=== PATIENT | female | born 1980 | race Two or more races ===

== ENCOUNTER → 2016-10-23 | Outpatient (CLI) | payer BC ==
[2016-10-23 12:55] LABS: Basophils # (auto) 0 uL; Basophils % (auto) 0.2 % (0.0-2.0); CONDITION Y; DEFINITIVE SEE PRINTOUT; Eosinophils # (auto) 0.1 uL; Eosinophils % (auto) 1.1 % (0.0-7.0); Hematocrit 38.9 % (36.0-46.0); Hemoglobin 12.4 g/dL (12.2-16.2); Lymphocytes # (auto) 2.7 uL; Lymphocytes % (auto) 33.2 % (10.0-50.0); Mean Corpuscular Hemoglobin 24.7 pg (28.0-32.0); Mean Corpuscular Hgb Conc. 31.9 g/dL (32.0-36.0); Mean Corpuscular Volume 77.4 fL (80.0-100.0); Mean Platelet Volume 9.4 fL (7.4-10.4); Monocytes # (auto) 0.5 uL; Monocytes % (auto) 6.3 % (0.0-12.0); Neutrophils # (auto) 4.7 uL; Neutrophils % (auto) 59.2 % (37.0-80.0); Platelet Count (auto) 393 10^3/uL (140-450); Red Cell Distribution Width 17.8 % (11.6-16.0)
[2016-10-23 13:19] LABS: Albumin 3.4 g/dL (3.4-5.0); BUN/Creatinine Ratio 10.7; Bilirubin, Total 0.6 mg/dL (0.2-1.0); Calcium 8.5 mg/dL (8.5-10.1); Potassium 4.1 mmol/L (3.5-5.1); Total Protein 7.4 g/dL (6.4-8.2)
[2016-10-23 14:16] LABS: Urine Bilirubin Negative (Negative); Urine Blood Negative /uL (Negative); Urine Color Yellow (Yellow); Urine Glucose Normal (Normal); Urine Ketone Negative (Negative); Urine Mucus FEW (None Seen); Urine Nitrite Negative (Negative); Urine RBC 2 /hpf (0 - 4); Urine Squamous Epithelial Cell MOD /hpf (<5); Urine Urobilinogen Normal (Negative)
== END | disposition home or self-care (01) ==
LOC: LAB 12:31
PROVIDERS: ATTEND Internal Medicine
DX: N83.209 Unspecified ovarian cyst, unspecified side (principal); E66.9 Obesity, unspecified; Z98.84 Bariatric surgery status
CPT/HCPCS: 36415; 80053; 80061; 81001; 82607; 84439; 84443; 85025; 85652

== ENCOUNTER → 2016-11-20 | Outpatient (CLI) | payer BC ==
[2016-11-20 10:48] LABS: Basophils # (auto) 0 uL; Basophils % (auto) 0.3 % (0.0-2.0); Eosinophils # (auto) 0.1 uL; Lymphocytes # (auto) 2.4 uL; Red Cell Distribution Width 17.5 % (11.8-14.3)
[2016-11-20 10:50] LABS: Eosinophils % (auto) 0.9 % (0.0-7.0); Hematocrit 37.7 % (36.0-46.0); Hemoglobin 12.1 g/dL (12.2-16.2); Lymphocytes % (auto) 26.8 % (10.0-50.0); Mean Corpuscular Hemoglobin 24.6 pg (28.0-32.0); Mean Corpuscular Hgb Conc. 32.1 g/dL (32.0-36.0); Mean Corpuscular Volume 76.7 fL (80.0-100.0); Mean Platelet Volume 8.2 fL (6.9-10.8); Monocytes # (auto) 0.6 uL; Monocytes % (auto) 6.5 % (0.0-12.0); Neutrophils % (auto) 65.5 % (37.0-80.0); Platelet Count (auto) 399 10^3/uL (140-450); White Blood Cell 9.1 10^3/uL (4.4-10.8)
[2016-11-20 12:03] LABS: B-Type Natriuretic Peptide 13.5 pg/mL (0-100); Temperature: 22.9 C (20.0-25.0)
== END | disposition home or self-care (01) ==
LOC: LAB 10:24
PROVIDERS: ATTEND Internal Medicine
DX: E66.9 Obesity, unspecified (principal); R06.09 Other forms of dyspnea
CPT/HCPCS: 36415; 83880; 85025; 85379

== ENCOUNTER → 2016-12-15 | Outpatient (CLI) | payer BC | END | disposition home or self-care (01) | LOC: XYW 09:03 | PROVIDERS: ATTEND Internal Medicine | DX: I08.0 Rheumatic disorders of both mitral and aortic valves (principal) | CPT/HCPCS: 93306 ==

== ENCOUNTER → 2017-02-01 | Outpatient (CLI) | payer BC ==
[~2017-02-01] MED LIST: ALBUTEROL SULF 2.5 MG/0.5ML(0.5%) NEB SOLN ONE
== END | disposition home or self-care (01) ==
LOC: RT 08:58
PROVIDERS: ATTEND Internal Medicine
DX: R06.02 Shortness of breath (principal)
CPT/HCPCS: 94060

== ENCOUNTER 2017-10-11 18:53 | Emergency (ER) | payer BC ==
[~2017-10-11] VITALS: Ht 170.2 cm; Wt 136.1 kg
[~2017-10-11 18:53] MED LIST changes: +ALBUAER3 IN; -ALBUTEROL SULF 2.5 MG/0.5ML(0.5%) NEB SOLN ONE; +MONT10TA23 PO
[2017-10-11 19:53] LABS: Urine Bacteria NONE SEEN /hpf (None Seen); Urine Blood Negative /uL (Negative); Urine Mucus FEW (None Seen); Urine Specific Gravity 1.014 (1.001-1.035); Urine WBC 2 /hpf (0 - 5)
[2017-10-11 21:42] VITALS: BP 140/80
== END 2017-10-11 21:57 | disposition home or self-care (01) ==
LOC: ER 18:59
DX: M46.96 Unspecified inflammatory spondylopathy, lumbar region (principal); N39.0 Urinary tract infection, site not specified; Z90.49 Acquired absence of other specified parts of digestive tract
CPT/HCPCS: 72131; 74176; 81001; 81025

== ENCOUNTER → 2017-10-22 | Outpatient (CLI) | payer BC ==
[2017-10-22 10:16] LABS: Basophils # (auto) 0 uL; Eosinophils # (auto) 0 uL; Eosinophils % (auto) 0.8 % (0.0-7.0); Lymphocytes # (auto) 1.5 uL; Monocytes # (auto) 0.3 uL
[2017-10-22 10:17] LABS: Basophils % (auto) 0.4 % (0.0-2.0); Hematocrit 37.3 % (36.0-46.0); Lymphocytes % (auto) 28.6 % (10.0-50.0); Mean Corpuscular Hemoglobin 24.2 pg (28.0-32.0); Mean Corpuscular Hgb Conc. 32.1 g/dL (32.0-36.0); Mean Corpuscular Volume 75.5 fL (80.0-100.0); Monocytes % (auto) 6.3 % (0.0-12.0); Neutrophils # (auto) 3.3 uL; Neutrophils % (auto) 63.9 % (37.0-80.0); Platelet Count (auto) 331 10^3/uL (140-450); Red Blood Cells 4.95 10^6/uL (4.0-5.20); White Blood Cell 5.1 10^3/uL (4.4-10.8)
[2017-10-22 10:20] LABS: Urine Bacteria NONE SEEN /hpf (None Seen); Urine Blood Negative /uL (Negative); Urine Mucus FEW (None Seen); Urine Specific Gravity 1.018 (1.001-1.035); Urine WBC 2 /hpf (0 - 5)
[2017-10-22 11:40] LABS: Albumin 3.2 g/dL (3.4-5.0); BUN/Creatinine Ratio 9.9; Bilirubin, Total 0.5 mg/dL (0.2-1.0); Calcium 8.1 mg/dL (8.5-10.1); Potassium 3.8 mmol/L (3.5-5.1); Total Protein 6.9 g/dL (6.4-8.2)
[2017-10-22 11:58] LABS: Free T4 (Free Thyroxine) 0.99 ng/dL (0.89-1.76)
== END | disposition home or self-care (01) ==
LOC: LAB 09:43
PROVIDERS: ATTEND Internal Medicine
DX: M79.2 Neuralgia and neuritis, unspecified (principal)
CPT/HCPCS: 36415; 80053; 80061; 81001; 82607; 84207; 84425; 84439; 84443; 85025; 85652

== ENCOUNTER → 2018-02-28 | Outpatient (CLI) | payer BC ==
[2018-02-28 07:33] LABS: Basophils # (auto) 0 uL; Basophils % (auto) 0.4 % (0.0-2.0); Eosinophils # (auto) 0.1 uL; Eosinophils % (auto) 1.2 % (0.0-7.0); Hematocrit 45.8 % (36.0-46.0); Hemoglobin 14.9 g/dL (12.2-16.2); Lymphocytes # (auto) 1.7 uL; Lymphocytes % (auto) 28.3 % (10.0-50.0); Mean Corpuscular Hemoglobin 27.4 pg (28.0-32.0); Mean Corpuscular Hgb Conc. 32.5 g/dL (32.0-36.0); Mean Corpuscular Volume 84.3 fL (80.0-100.0); Monocytes # (auto) 0.3 uL; Monocytes % (auto) 5.6 % (0.0-12.0); Neutrophils % (auto) 64.5 % (37.0-80.0); Platelet Count (auto) 283 10^3/uL (140-450); Red Blood Cells 5.43 10^6/uL (4.0-5.20); Red Cell Distribution Width 19.1 % (11.8-14.3); White Blood Cell 6.2 10^3/uL (4.4-10.8)
[2018-02-28 10:37] LABS: Hepatitis B Surface Antibody Negative
[2018-02-28 12:46] LABS: Hepatitis B Surface Antigen Negative (Negative)
[2018-02-28 12:47] LABS: Hepatitis B Core IgM Negative
[2018-03-01 23:26] LABS: RPR Non Reactive (Non Reactive)
== END | disposition home or self-care (01) ==
LOC: LAB 07:06
PROVIDERS: ATTEND Internal Medicine
DX: D64.9 Anemia, unspecified (principal); Z77.21 Contact with and (suspected) exposure to potentially hazardous body fluids
CPT/HCPCS: 36415; 82607; 83540; 84425; 85025; 86592; 86703; 86705; 86706; 86803; 87340

== ENCOUNTER → 2018-09-26 | Outpatient (CLI) | payer BC | END | disposition home or self-care (01) | LOC: LAB 14:31 | PROVIDERS: ATTEND Specialist | DX: N83.299 Other ovarian cyst, unspecified side (principal) | CPT/HCPCS: 82378; 86301; 86304 ==

== ENCOUNTER → 2018-12-02 | Outpatient (CLI) | payer BC ==
[2018-12-02 09:44] LABS: Basophils # (auto) 0 uL; Basophils % (auto) 0.3 % (0.0-2.0); Eosinophils # (auto) 0.1 uL; Eosinophils % (auto) 1.6 % (0.0-7.0); Hematocrit 47.4 % (36.0-46.0); Hemoglobin 15.8 g/dL (12.2-16.2); Lymphocytes # (auto) 1.1 uL; Lymphocytes % (auto) 20.9 % (10.0-50.0); Mean Corpuscular Hemoglobin 30.6 pg (28.0-32.0); Mean Corpuscular Hgb Conc. 33.3 g/dL (32.0-36.0); Monocytes # (auto) 0.4 uL; Monocytes % (auto) 7.5 % (0.0-12.0); Neutrophils # (auto) 3.7 uL; Neutrophils % (auto) 69.7 % (37.0-80.0); Nucleated Red Blood Cells % 0.2 %; Platelet Count (auto) 208 10^3/uL (140-450); Red Blood Cells 5.15 10^6/uL (4.0-5.20); Red Cell Distribution Width 13.4 % (11.8-14.3); White Blood Cell 5.3 10^3/uL (4.4-10.8)
[2018-12-02 09:56] LABS: Urine Bacteria NONE SEEN /hpf (None Seen); Urine Blood Negative /uL (Negative); Urine Specific Gravity 1.016 (1.001-1.035); Urine WBC 1 /hpf (0 - 5)
[2018-12-02 09:58] LABS: Albumin 3.2 g/dL (3.4-5.0); Calcium 8.3 mg/dL (8.5-10.1); Potassium 4.4 mmol/L (3.5-5.1)
[2018-12-02 10:02] LABS: BUN/Creatinine Ratio 10.5; Bilirubin, Total 0.8 mg/dL (0.2-1.0); Total Protein 6.7 g/dL (6.4-8.2)
== END | disposition home or self-care (01) ==
LOC: LAB 09:19
PROVIDERS: ATTEND Internal Medicine
DX: Z00.00 Encounter for general adult medical examination without abnormal findings (principal); J02.9 Acute pharyngitis, unspecified; R53.83 Other fatigue
CPT/HCPCS: 36415; 80053; 80061; 81001; 84439; 84443; 85025; 85652; 86308

== ENCOUNTER → 2019-10-18 | Outpatient (CLI) | payer BC | END | disposition home or self-care (01) | LOC: US 09:21 | PROVIDERS: ATTEND Internal Medicine | DX: R92.2 Inconclusive mammogram (principal); N63.11 Unspecified lump in the right breast, upper outer quadrant; N60.31 Fibrosclerosis of right breast; Z90.49 Acquired absence of other specified parts of digestive tract; Z68.41 Body mass index [BMI] 40.0-44.9, adult; Z98.84 Bariatric surgery status; Z98.890 Other specified postprocedural states; Z79.899 Other long term (current) drug therapy | CPT/HCPCS: 19083; 88305; 88342; J2001; 10022; 76942 ==

== ENCOUNTER → 2019-11-17 | Outpatient (CLI) | payer BC ==
[2019-11-17 11:02] LABS: Basophils # (auto) 0 10 ^3/uL (0-0.2); Basophils % (auto) 0.3 % (0.0-2.0); Eosinophils # (auto) 0.1 10 ^3/uL (0-0.8); Eosinophils % (auto) 0.9 % (0.0-7.0); Hematocrit 42.5 % (36.0-46.0); Hemoglobin 13.9 g/dL (12.2-16.2); Lymphocytes # (auto) 1.8 10 ^3/uL (0.4-5.4); Lymphocytes % (auto) 23.9 % (10.0-50.0); Mean Corpuscular Hgb Conc. 32.7 g/dL (32.0-36.0); Mean Corpuscular Volume 85.6 fL (80.0-100.0); Monocytes # (auto) 0.4 10 ^3/uL (0-1.3); Monocytes % (auto) 5.7 % (0.0-12.0); Neutrophils # (auto) 5.3 10 ^3/uL (1.6-8.6); Neutrophils % (auto) 69.2 % (37.0-80.0); Platelet Count (auto) 309 10^3/uL (140-450); Red Blood Cells 4.97 10^6/uL (4.0-5.20); Red Cell Distribution Width 14.4 % (11.8-14.3); White Blood Cell 7.7 10^3/uL (4.4-10.8)
[2019-11-17 11:31] LABS: Calcium 8.4 mg/dL (8.5-10.1); Potassium 4.1 mmol/L (3.5-5.1)
[2019-11-17 11:39] LABS: Albumin 3.3 g/dL (3.4-5.0); BUN/Creatinine Ratio 18.5; Bilirubin, Total 0.8 mg/dL (0.2-1.0); Total Protein 6.4 g/dL (6.4-8.2)
== END | disposition home or self-care (01) ==
LOC: LAB 10:39
PROVIDERS: ATTEND Internal Medicine
DX: G93.3 Postviral and related fatigue syndromes (principal); R05 Cough
CPT/HCPCS: 36415; 80053; 83615; 85025; 85652

== ENCOUNTER → 2019-11-24 | Outpatient (CLI) | payer BC ==
[2019-11-24 15:12] LABS: Basophils # (auto) 0 10 ^3/uL (0-0.2); Basophils % (auto) 0.3 % (0.0-2.0); Eosinophils # (auto) 0.1 10 ^3/uL (0-0.8); Hematocrit 43.1 % (36.0-46.0); Hemoglobin 14.2 g/dL (12.2-16.2); Lymphocytes # (auto) 2.3 10 ^3/uL (0.4-5.4); Lymphocytes % (auto) 30.3 % (10.0-50.0); Mean Corpuscular Hemoglobin 28.3 pg (28.0-32.0); Mean Corpuscular Hgb Conc. 32.9 g/dL (32.0-36.0); Monocytes # (auto) 0.5 10 ^3/uL (0-1.3); Neutrophils # (auto) 4.7 10 ^3/uL (1.6-8.6); Neutrophils % (auto) 61.4 % (37.0-80.0); Nucleated Red Blood Cells % 0.2 %; Platelet Count (auto) 301 10^3/uL (140-450); Red Blood Cells 5.01 10^6/uL (4.0-5.20); Red Cell Distribution Width 15.1 % (11.8-14.3); White Blood Cell 7.6 10^3/uL (4.4-10.8)
[2019-11-24 15:52] LABS: Urine Bacteria NONE SEEN /hpf (None Seen); Urine Blood Negative /uL (Negative); Urine Mucus FEW (None Seen); Urine Specific Gravity 1.023 (1.001-1.035); Urine WBC 13 /hpf (0 - 5)
[2019-11-24 15:57] LABS: Albumin 3.5 g/dL (3.4-5.0); BUN/Creatinine Ratio 18.6; Bilirubin, Total 0.8 mg/dL (0.2-1.0); Calcium 8.7 mg/dL (8.5-10.1); Total Protein 7.1 g/dL (6.4-8.2)
== END | disposition home or self-care (01) ==
LOC: LAB 14:53
PROVIDERS: ATTEND Internal Medicine
DX: J45.909 Unspecified asthma, uncomplicated (principal); N83.209 Unspecified ovarian cyst, unspecified side
CPT/HCPCS: 36415; 80053; 80061; 81001; 82785; 84439; 84443; 85025; 85652; 86304

== ENCOUNTER → 2020-02-13 | Outpatient (CLI) | payer BC | END | disposition home or self-care (01) | LOC: LAB 11:51 | PROVIDERS: ATTEND Specialist | DX: D27.9 Benign neoplasm of unspecified ovary (principal) | CPT/HCPCS: 36415; 82565; 84520 ==

== ENCOUNTER → 2020-02-23 | Outpatient (CLI) | payer BC ==
[2020-02-23 15:29] LABS: Basophils # (auto) 0 10 ^3/uL (0-0.2); Basophils % (auto) 0.4 % (0.0-2.0); Eosinophils # (auto) 0.1 10 ^3/uL (0-0.8); Eosinophils % (auto) 0.9 % (0.0-7.0); Hematocrit 40.3 % (36.0-46.0); Hemoglobin 13.4 g/dL (12.2-16.2); Lymphocytes # (auto) 1.4 10 ^3/uL (0.4-5.4); Lymphocytes % (auto) 24.1 % (10.0-50.0); Mean Corpuscular Hgb Conc. 33.3 g/dL (32.0-36.0); Monocytes # (auto) 0.4 10 ^3/uL (0-1.3); Monocytes % (auto) 7.3 % (0.0-12.0); Neutrophils # (auto) 3.9 10 ^3/uL (1.6-8.6); Neutrophils % (auto) 67.3 % (37.0-80.0); Nucleated Red Blood Cells % 0.1 %; Platelet Count (auto) 279 10^3/uL (140-450); Red Cell Distribution Width 14.1 % (11.8-14.3); White Blood Cell 5.8 10^3/uL (4.4-10.8)
[2020-02-23 16:13] LABS: Albumin 3.3 g/dL (3.4-5.0); Calcium 8.5 mg/dL (8.5-10.1); Potassium 3.8 mmol/L (3.5-5.1)
[2020-02-23 16:17] LABS: BUN/Creatinine Ratio 16.4; Bilirubin, Total 0.6 mg/dL (0.2-1.0)
== END | disposition home or self-care (01) ==
LOC: LAB 15:04
PROVIDERS: ATTEND Internal Medicine
DX: M25.50 Pain in unspecified joint (principal)
CPT/HCPCS: 36415; 80053; 85025; 85652; 86160; 86431; 86812

== ENCOUNTER → 2021-02-25 | Outpatient (CLI) | payer BC ==
[2021-02-25 07:25] LABS: Basophils # (auto) 0.1 10 ^3/uL (0-0.2); Basophils % (auto) 0.9 % (0.0-2.0); Eosinophils # (auto) 0.1 10 ^3/uL (0-0.8); Eosinophils % (auto) 1.3 % (0.0-7.0); Hematocrit 34.4 % (36.0-46.0); Hemoglobin 11.1 g/dL (12.2-16.2); Lymphocytes # (auto) 1.6 10 ^3/uL (0.4-5.4); Lymphocytes % (auto) 22.3 % (10.0-50.0); Mean Corpuscular Hemoglobin 23.8 pg (28.0-32.0); Mean Corpuscular Hgb Conc. 32.1 g/dL (32.0-36.0); Mean Corpuscular Volume 73.9 fL (80.0-100.0); Monocytes # (auto) 0.5 10 ^3/uL (0-1.3); Monocytes % (auto) 6.2 % (0.0-12.0); Neutrophils # (auto) 5.1 10 ^3/uL (1.6-8.6); Neutrophils % (auto) 69.3 % (37.0-80.0); Nucleated Red Blood Cells % 0.1 %; Red Blood Cells 4.65 10^6/uL (4.0-5.20); Red Cell Distribution Width 17.4 % (11.8-14.3); White Blood Cell 7.3 10^3/uL (4.4-10.8)
[2021-02-25 08:05] LABS: Urine Bacteria NONE SEEN /hpf (None Seen); Urine Blood Negative /uL (Negative); Urine Specific Gravity 1.022 (1.001-1.035); Urine WBC 26 /hpf (0 - 5)
[2021-02-25 08:27] LABS: Potassium 4.5 mmol/L (3.5-5.1)
[2021-02-25 08:35] LABS: Free T4 (Free Thyroxine) 1.03 ng/dL (0.89-1.76)
[2021-02-25 08:40] LABS: BUN/Creatinine Ratio 17.2; Bilirubin, Total 0.5 mg/dL (0.2-1.0); Calcium 7.9 mg/dL (8.5-10.1); Total Protein 6.3 g/dL (6.4-8.2)
== END | disposition home or self-care (01) ==
LOC: LAB 07:01
PROVIDERS: ATTEND Internal Medicine
DX: D36.9 Benign neoplasm, unspecified site (principal); T78.40XA Allergy, unspecified, initial encounter; Z98.84 Bariatric surgery status
CPT/HCPCS: 36415; 80053; 80061; 81001; 82607; 84439; 84443; 85025; 85652; 86304

== ENCOUNTER → 2022-12-24 | Outpatient (CLI) | payer BC ==
[2022-12-24 10:24] LABS: Basophils # (auto) 0 10 ^3/uL (0-0.2); Basophils % (auto) 0.3 % (0.0-2.0); Eosinophils # (auto) 0.1 10 ^3/uL (0-0.8); Eosinophils % (auto) 1.4 % (0.0-7.0); Hematocrit 44.4 % (36.0-46.0); Hemoglobin 14.7 g/dL (12.2-16.2); Lymphocytes # (auto) 1.8 10 ^3/uL (0.4-5.4); Lymphocytes % (auto) 27.1 % (10.0-50.0); Mean Corpuscular Hemoglobin 30.2 pg (28.0-32.0); Mean Corpuscular Hgb Conc. 33.2 g/dL (32.0-36.0); Mean Corpuscular Volume 90.9 fL (80.0-100.0); Monocytes # (auto) 0.4 10 ^3/uL (0-1.3); Monocytes % (auto) 6.4 % (0.0-12.0); Neutrophils # (auto) 4.4 10 ^3/uL (1.6-8.6); Neutrophils % (auto) 64.8 % (37.0-80.0); Nucleated Red Blood Cells % 0.1 %; Red Blood Cells 4.88 10^6/uL (4.0-5.20); Red Cell Distribution Width 12.9 % (11.8-14.3); White Blood Cell 6.8 10^3/uL (4.4-10.8)
[2022-12-24 11:05] LABS: Alanine Aminotransferase 13 U/L (7-40); Albumin 4.1 g/dL (3.2-4.8); Alkaline Phosphatase 88 U/L (46-116); Anion Gap 5 (5-15); Aspartate Aminotransferase 21 U/L (13-40); Bilirubin, Total 0.9 mg/dL (0.2-1.0); Blood Urea Nitrogen 7 mg/dL (9-23); Calcium 8.5 mg/dL (8.5-10.1); Carbon Dioxide 26 mmol/L (20-30); Chloride 109 mmol/L (98-107); Cholesterol 142 mg/dL (< 200); Glucose 83 mg/dL (74-106); HDL Cholesterol 56 mg/dL (40-59); LDL Cholesterol 76 mg/dL (< 100); Potassium 4.4 mmol/L (3.5-5.1); Sodium 140 mmol/L (136-145); Total Protein 6.5 g/dL (5.7-8.2); Triglycerides 87 mg/dL (< 150)
[2022-12-24 11:10] LABS: Urine Bacteria NONE SEEN /hpf (None Seen); Urine Blood Negative /uL (Negative); Urine Clarity HAZY (Clear); Urine Color Yellow (Yellow); Urine Protein, UAD Negative (Negative); Urine Specific Gravity 1.013 (1.001-1.035); Urine Urobilinogen Normal (Negative); Urine WBC 3 /hpf (0 - 5)
[2022-12-24 11:35] LABS: Follicle Stimulating Hormone 7.02 IU/L (SEE BELOW)
[2022-12-24 11:36] LABS: Prolactin 6.37 ng/mL (2.8-29.2)
[2022-12-24 11:57] LABS: Erythrocyte Sedimentation Rate 8 mm/hr (0-20)
[2022-12-24 12:06] LABS: Free T4 (Free Thyroxine) 1.11 ng/dL (0.89-1.76)
== END | disposition home or self-care (01) ==
LOC: LAB 10:06
PROVIDERS: ATTEND Internal Medicine
DX: D27.0 Benign neoplasm of right ovary (principal); R51.9 Headache, unspecified; Z68.43 Body mass index [BMI] 50.0-59.9, adult
CPT/HCPCS: 36415; 80053; 80061; 81001; 82607; 83001; 83036; 84146; 84403; 84439; 84443; 85025; 85652; 86304

== ENCOUNTER → 2023-07-23 | Outpatient (CLI) | payer BC | END | disposition home or self-care (01) | LOC: LAB 13:50 | PROVIDERS: ATTEND Family Medicine | DX: L82.1 Other seborrheic keratosis (principal); D48.5 Neoplasm of uncertain behavior of skin ==

== ENCOUNTER → 2024-03-03 | Outpatient (CLI) | payer BC ==
[2024-03-03 11:45] LABS: Basophils # (auto) 0 10 ^3/uL (0-0.2); Basophils % (auto) 0.3 % (0.0-2.0); Eosinophils # (auto) 0.3 10 ^3/uL (0-0.8); Eosinophils % (auto) 4.1 % (0.0-7.0); Hematocrit 43.1 % (36.0-46.0); Hemoglobin 14.7 g/dL (12.2-16.2); Lymphocytes # (auto) 2.3 10 ^3/uL (0.4-5.4); Lymphocytes % (auto) 28.1 % (10.0-50.0); Mean Corpuscular Hemoglobin 30.2 pg (28.0-32.0); Mean Corpuscular Volume 88.7 fL (80.0-100.0); Monocytes # (auto) 0.6 10 ^3/uL (0-1.3); Monocytes % (auto) 6.9 % (0.0-12.0); Neutrophils # (auto) 4.9 10 ^3/uL (1.6-8.6); Neutrophils % (auto) 60.6 % (37.0-80.0); Nucleated Red Blood Cells % 0.1 %; Platelet Count (auto) 277 10^3/uL (140-450); Red Blood Cells 4.86 10^6/uL (4.0-5.20); Red Cell Distribution Width 13.3 % (11.8-14.3); White Blood Cell 8.1 10^3/uL (4.4-10.8)
[2024-03-03 12:11] LABS: Alanine Aminotransferase < 9 U/L (7-40); Alkaline Phosphatase 101 U/L (46-116); Anion Gap 5 (5-15); Aspartate Aminotransferase 14 U/L (13-40); BUN/Creatinine Ratio 15.3 (10.0-20.0); Bilirubin, Total 0.7 mg/dL (0.2-1.0); Blood Urea Nitrogen 11 mg/dL (9-23); CRP High Sensitivity 0.67 mg/dL (<1.0); Calcium 9.2 mg/dL (8.7-10.4); Carbon Dioxide 27 mmol/L (20-31); Chloride 108 mmol/L (98-107); Glucose 85 mg/dL (74-106); Sodium 140 mmol/L (136-145); Total Protein 6.2 g/dL (5.7-8.2)
[2024-03-03 12:20] LABS: Erythrocyte Sedimentation Rate 7 mm/hr (0-20)
== END | disposition home or self-care (01) ==
LOC: LAB 11:10
PROVIDERS: ATTEND Internal Medicine
DX: K52.9 Noninfective gastroenteritis and colitis, unspecified (principal)
CPT/HCPCS: 36415; 80053; 85025; 85652; 86141

== ENCOUNTER → 2024-07-15 | Day surgery (SDC) | payer BC ==
[2024-07-07 11:38] LABS: Basophils # (auto) 0 10 ^3/uL (0-0.2); Basophils % (auto) 0.3 % (0.0-2.0); Eosinophils # (auto) 0.1 10 ^3/uL (0-0.8); Eosinophils % (auto) 1.3 % (0.0-7.0); Hematocrit 44.8 % (36.0-46.0); Hemoglobin 14.8 g/dL (12.2-16.2); Lymphocytes # (auto) 2.2 10 ^3/uL (0.4-5.4); Lymphocytes % (auto) 29.4 % (10.0-50.0); Mean Corpuscular Volume 84.9 fL (80.0-100.0); Monocytes # (auto) 0.4 10 ^3/uL (0-1.3); Monocytes % (auto) 5.6 % (0.0-12.0); Neutrophils # (auto) 4.9 10 ^3/uL (1.6-8.6); Neutrophils % (auto) 63.4 % (37.0-80.0); Nucleated Red Blood Cells % 0.1 %; Platelet Count (auto) 310 10^3/uL (140-450); Red Blood Cells 5.27 10^6/uL (4.0-5.20); White Blood Cell 7.7 10^3/uL (4.4-10.8)
[2024-07-07 11:55] LABS: INR 0.95 (0.9-1.15); Partial Thromboplastin Time 26.8 SEC (24.5-34.5); Prothrombin Time 10.1 sec (9.3-11.8)
[2024-07-07 11:57] LABS: Alanine Aminotransferase 12 U/L (7-40); Albumin 4.2 g/dL (3.2-4.8); Alkaline Phosphatase 104 U/L (46-116); Anion Gap 8 (5-15); Aspartate Aminotransferase 16 U/L (13-40); BUN/Creatinine Ratio 12.5 (10.0-20.0); Blood Urea Nitrogen 9 mg/dL (9-23); Calcium 8.8 mg/dL (8.7-10.4); Carbon Dioxide 26 mmol/L (20-31); Chloride 106 mmol/L (98-107); Glucose 86 mg/dL (74-106); Potassium 4.2 mmol/L (3.5-5.1); Sodium 140 mmol/L (136-145); Total Protein 6.9 g/dL (5.7-8.2)
[2024-07-07 11:58] LABS: Bilirubin, Total 0.7 mg/dL (0.2-1.0)
[~2024-07-15] VITALS: Ht 170.2 cm; Wt 166.9 kg
[~2024-07-15] MED LIST changes: +ASPI81CH59 PO; +[UNRECOGNIZED DRUG - CODE] PO; +diphenhdrAMINE HCL 50 MG/1 ML VL ONE
[2024-07-15] MEDS: fentaNYL CITRATE 100 MCG/2 ML VL ONE (08:32)
[2024-07-15] MEDS: MIDAZOLAM HCL 2MG/2ML 2ml VIAL (1mg/ml) ONE (08:32)
[2024-07-15 08:56] VITALS: PULSE 89; RESP 19; TEMP 97.9; O2SAT 99
--- NOTE | 2024-07-15 08:58 | DVHNC2 ---
Procedure - PROCEDURE DATE: 07/15/2024 PROCEDURE PERFORMED BY: ADELINA SOLANO MD REFERRING PROVIDER: DANYELL MCCLURE PROCEDURE PERFORMED: 1. COLONOSCOPY WITH MODERATE SEDATION 2. COLONOSCOPY WITH COLD BIOPSY POLYPECTOMY PRE-PROCEDURE DIAGNOSIS: 1. COLON CANCER SCREENING POSTPROCEDURE DIAGNOSIS: 1. TWO SMALL TRANSVERSE COLON POLYPS 2. 1+ INTERNAL HEMORRHOIDS AND SMALL EXTERNAL HEMORRHOIDS INDICATION FOR PROCEDURE: THE PATIENT IS A 44-YEAR-OLD FEMALE WHO PRESENTS FOR OUTPATIENT COLONOSCOPY FOR SCREENING, AVERAGE RISK. MEDICATIONS USED: 6MG OF VERSED AND 100MCG OF FENTANYL IV WAS GIVEN IN INCREMENTAL DOSES DETAILS OF THE PROCEDURE: INFORMED CONSENT WAS OBTAINED AFTER RISKS BENEFITS AND ALTERNATIVES WERE DISCUSSED AT LENGTH WITH THE PATIENT. THE PATIENT GAVE CONSENT TO THE PROCEDURE WELL THE MEDICATION USED FOR SEDATION. THE PATIENT WAS PLACED IN THE LEFT LATERAL DECUBITUS POSITION. DIGITAL RECTAL EXAM SHOWED SMALL INTERNAL HEMORRHOIDS AND EXTERNAL HEMORRHOIDS. AN OLYMPUS VARIABLE TORSION PEDIATRIC COLONOSCOPE WAS INSERTED INTO THE RECTUM AND ADVANCED TO THE CECUM. THE CECUM WAS IDENTIFIED BY THE ILEOCECAL VALVE AND THE APPENDICEAL ORIFICE. THE SCOPE WAS THEN WITHDRAWN. THE PREP WAS GOOD WITH SMALL AMOUNTS OF STOOL. BOSTON BOWEL PREP SCORE OF EIGHT WAS NOTED. THERE WERE NO LARGE POLYPS, MASSES, STRICTURES, OR ARTERIOVENOUS MALFORMATION SEEN. THE PATIENT HAD TWO SMALL TRANSVERSE COLON POLYPS MEASURING 3 MM COMPLETELY REMOVED WITH BIOPSY FORCEPS. RETROFLEXION SHOWED 1+ INTERNAL HEMORRHOIDS. THE PATIENT TOLERATED THE PROCEDURE WELL START TIME: 0839 CECUM TIME: 0846 END TIME: 0853 IMPRESSION: 1. TWO SMALL COLON POLYPS INTERNAL AND EXTERNAL HEMORRHOIDS RECOMMENDATIONS: 1. FOLLOW UP WITH ME IN CLINIC FOR PATHOLOGY RESULTS 2. HIGH-FIBER DIET 3. FOLLOW UP WITH PRIMARY CARE PHYSICIAN 4. REPEAT COLONOSCOPY IN 5YEARS UNLESS OTHERWISE INDICATED BY PATHOLOGY OR SYMPTOMS I WOULD LIKE TO THANK DR. CHILD FOR THIS REFERRAL ADELINA SOLANO MD July 15, 2024 08:58
[2024-07-15 09:11] VITALS: BP 113/51; PULSE 63; RESP 20; O2SAT 100
== END | disposition home or self-care (01) ==
LOC: GI 07:06
PROVIDERS: ATTEND Specialist
DX: Z12.11 Encounter for screening for malignant neoplasm of colon (principal); K63.5 Polyp of colon; K64.4 Residual hemorrhoidal skin tags; K64.8 Other hemorrhoids; K52.9 Noninfective gastroenteritis and colitis, unspecified; J45.909 Unspecified asthma, uncomplicated; Z79.82 Long term (current) use of aspirin; Z79.899 Other long term (current) drug therapy; Z86.2 Personal history of diseases of the blood and blood-forming organs and certain disorders involving the immune mechanism; Z98.84 Bariatric surgery status; Z90.49 Acquired absence of other specified parts of digestive tract; Z98.890 Other specified postprocedural states
CPT/HCPCS: 36415; 45380; 80053; 81025; 85025; 85610; 85730; 88305; J2250; J3010; 99152

== ENCOUNTER 2024-08-22 07:09 | Outpatient (CLI) | payer BC ==
[~2024-08-22 07:09] MED LIST changes: -diphenhdrAMINE HCL 50 MG/1 ML VL ONE
[2024-08-22 07:46] LABS: Urine Protein, UAD Negative (Negative)
[2024-08-22 07:52] LABS: Hematocrit 42.2 % (36.0-46.0); Hemoglobin 14.2 g/dL (12.2-16.2); Mean Corpuscular Hemoglobin 28.3 pg (28.0-32.0); Mean Corpuscular Volume 83.9 fL (80.0-100.0); Nucleated Red Blood Cells % 0.0 %
[2024-08-22 08:01] LABS: Alanine Aminotransferase 9 U/L (7-40); Albumin 3.9 g/dL (3.2-4.8); Alkaline Phosphatase 95 U/L (46-116); Anion Gap 7 (5-15); BUN/Creatinine Ratio 13.3 (10.0-20.0); Blood Urea Nitrogen 10 mg/dL (9-23); Calcium 8.7 mg/dL (8.7-10.4); Carbon Dioxide 24 mmol/L (20-31); Chloride 110 mmol/L (98-107); Glucose 88 mg/dL (74-106); Potassium 4.3 mmol/L (3.5-5.1); Sodium 141 mmol/L (136-145); Total Protein 6.3 g/dL (5.7-8.2); Triglycerides 84 mg/dL (< 150)
[2024-08-22 08:02] LABS: Bilirubin, Total 0.5 mg/dL (0.2-1.0); Cholesterol 151 mg/dL (< 200)
[2024-08-22 08:03] LABS: HDL Cholesterol 61 mg/dL (40-59)
[2024-08-22 08:46] LABS: Free T4 (Free Thyroxine) 1.03 ng/dL (0.89-1.76)
== END 2024-08-22 19:14 | disposition home or self-care (01) ==
LOC: LAB 07:09
PROVIDERS: ATTEND Internal Medicine
DX: J30.2 Other seasonal allergic rhinitis (principal); Z36.84 Encounter for antenatal screening for fetal lung maturity
CPT/HCPCS: 36415; 80053; 80061; 81001; 82607; 83036; 84439; 84443; 85025; 85652